=== PATIENT | male | born 1970 | race Caucasian/White ===

== ENCOUNTER 2022-09-27 11:37 | Inpatient (IN) | payer MEDICAID ==
[~2022-09-27] VITALS: Ht 175.3 cm; Wt 90.0 kg
[2022-09-27] MEDS ORDERED: normal saline 1000ml 1,000 ML IV ONE (13:05)
[2022-09-27] MEDS ORDERED: vancomycin/NS 1 GM ADD-VANTAGE 250 ML IV ONE ×2 (13:05→18:30)
[2022-09-27] MEDS ORDERED: piperacillin/tazo 3.375gm/50ml 50 ML IV ONE (13:05)
[2022-09-27] MEDS ORDERED: ondansetron/PF 4mg/2ml inj IV ONE (14:00)
[2022-09-27] MEDS ORDERED: morphine 4 MG/ML inj SYRINge IV ONE (14:00)
[2022-09-27] MEDS ORDERED: LORazepam 2 mg/ml vial IV ONE (14:00)
[2022-09-27 14:21] LABS: BASOPHILS % (AUTO) 0.4 % (0-1); EOSINOPHILS # (AUTO) 0.2 X10'3 (0-0.9); EOSINOPHILS % (AUTO) 2.2 % (0-6); HEMATOCRIT 40.3 % (42.0-52.0); HEMOGLOBIN 13.3 g/dl (14.0-17.9); LYMPHOCYTES # (AUTO) 1.8 X10'3 (1.1-4.8); LYMPHOCYTES % (AUTO) 21.3 % (21-51); MEAN CORPUSCULAR HEMOGLOBIN 29.2 PG (27.0-31.0); MEAN CORPUSCULAR VOLUME 88.5 FL (78-98); MEAN PLATELET VOLUME 8.3 FL (7.4-10.4); MONOCYTES # (AUTO) 0.6 X10'3 (0-0.9); MONOCYTES % (AUTO) 7.1 % (2-12); NEUTROPHILS # (AUTO) 5.7 X10'3 (1.8-7.7); PLATELET COUNT 276 X10'3 (140-440); RED BLOOD COUNT 4.56 X10'6 (4.70-6.10); RED CELL DISTRIBUTION WIDTH 14.6 % (11.5-14.5); WHITE BLOOD COUNT 8.3 X10'3 (4.5-11.0)
[2022-09-27 14:39] LABS: ALANINE AMINOTRANSFERASE 72 U/L (12-78); ALBUMIN 3.7 G/DL (3.4-5.0); ALBUMIN/GLOBULIN RATIO 0.9 (1.1-1.5); ALKALINE PHOSPHATASE 77 IU/L (46-116); ANION GAP 6 (8-16); ASPARTATE AMINO TRANSFERASE 58 U/L (10-37); BILIRUBIN,TOTAL 0.5 MG/DL (0.1-1.0); BLOOD UREA NITROGEN 15 MG/DL (7-18); BUN/CREATININE RATIO 17.2 (10.0-20.0); CALCIUM 9.1 MG/DL (8.5-10.1); CHLORIDE 106 MMOL/L (99-107); CREATININE 0.87 MG/DL (0.60-1.10); GLUCOSE 93 MG/DL (70-104); MAGNESIUM 2.3 MG/DL (1.5-2.4); POTASSIUM 4.7 MMOL/L (3.5-5.1); SODIUM 141 MMOL/L (135-145); TOTAL CARBON DIOXIDE 28.8 MMOL/L (24-32); TOTAL PROTEIN 7.6 G/DL (6.4-8.2); eGFR > 90 ML/MIN
[2022-09-27] MEDS ORDERED: iohexol 300mg/ml 100ml inj. ONE (15:42)
[2022-09-27] MEDS ORDERED: magnesium 2GM in 50ml NS 50 ML IV PRN (17:45)
[2022-09-27] MEDS ORDERED: mag hydrox/Alum hydrox/simeth 30ml oral suspension PO PRN (17:45)
[2022-09-27] MEDS ORDERED: magnesium Cl slow-release 64mg tablet PO PRN (17:45)
[2022-09-27] MEDS ORDERED: potassium Cl 20 mEq SR tablet PO PRN ×2 (17:45)
[2022-09-27] MEDS ORDERED: potassium Cl 40MEQ/1/2NS 520ml 520 ML IV PRN (17:45)
[2022-09-27] MEDS ORDERED: magnesium 4gm in 100ml NS 100 ML IV PRN (17:45)
[2022-09-27] MEDS ORDERED: acetaminophen 325mg tablet PO PRN (17:45)
[2022-09-27] MEDS ORDERED: ondansetron/PF 4mg/2ml inj IV PRN (17:45)
[2022-09-27] MEDS ORDERED: magnesium hydroxide 30ml (MOM) UD suspension PO PRN (17:45)
[2022-09-27 18:25] LABS: HEMOGLOBIN A1C 5.9 % (4.5-6.2)
[2022-09-27 18:27] LABS: ETHANOL < 0.010 GM/DL (0.0-0.010)
[2022-09-27] MEDS: normal saline 1000ml 1,000 ML IV SCH (18:35)
[2022-09-27] MEDS: K and/or MAG REPLACEMENT MC SCH (19:18)
--- NOTE | 2022-09-27 19:31 | NUR ---
ATTEMPTED GENERAL ASSESSMENT. PT UNCOOPERATIVE WITH A MAJORITY OF ASSESSMENT.
[2022-09-27 19:41] LABS: CLARITY,URINE CLOUDY (Clear); COLOR,URINE YELLOW (Yellow); GLUCOSE, URINE NEGATIVE (Neg); KETONES,URINE 15 mg/dl (Neg); LEUKOCYTE ESTERASE ,URINE TRACE (Neg); NITRITES, URINE POSITIVE (Neg); OCCULT BLOOD,URINE TRACE-INTACT (Neg); PH,URINE 6.5 (4.8-8.0); PROTEIN,URINE NEGATIVE (Neg)
[2022-09-27 19:45] LABS: UA COLLECTION TYPE URINAL
[2022-09-27 19:52] LABS: BACTERIA,URINE 4+ /HPF (Neg); SQUAMOUS EPITHELIAL CELL,UR FEW /LPF (FEW); WBC,URINE TNTC /HPF (0-4)
[2022-09-27 19:53] LABS: RBC,URINE 0-2 /HPF (0-2)
[2022-09-27 20:10] LABS: URINE AMPHETAMINE SCREEN POSITIVE (Neg); URINE BARBITUATE SCREEN NEGATIVE (Neg); URINE BENZODIAZEPINES SCREEN NEGATIVE (Neg); URINE CANNABINOID SCREEN POSITIVE (Neg); URINE COCAINE SCREEN NEGATIVE (Neg); URINE METHADONE SCREEN NEGATIVE (Neg); URINE OPIATE SCREEN POSITIVE (Neg); URINE PHENCYCLIDINE SCREEN NEGATIVE (Neg)
--- NOTE | 2022-09-27 21:34 | NUR ---
Patient in room ED 12. I have received report from ZION Haro and had the opportunity to ask questions and assume patient care.
[2022-09-27] MEDS: piperacillin/tazo 3.375gm/50ml 50 ML IV SCH (21:49)
[2022-09-27] MEDS: HYDROmorphone inj. 0.5 MG/0.5 ML DISP.SYRIN IV PRN (21:49)
[2022-09-27 21:56] VITALS: BP_SYST 147; BP_SYST 158; BP_DIAS 104; BP_DIAS 89; PULSE 75; PULSE 96; RESP 16; RESP 19; TEMP 98; O2SAT 98; O2SAT 99
[2022-09-27 22:00] VITALS: RESP 18; O2SAT 98
[2022-09-28] MEDS: HYDROmorphone inj. 0.5 MG/0.5 ML DISP.SYRIN IV PRN ×3 (01:18→09:11)
[2022-09-28] MEDS: piperacillin/tazo 3.375gm/50ml 50 ML IV SCH (04:33)
[2022-09-28] MEDS: normal saline 1000ml 1,000 ML IV SCH ×2 (04:33→10:42)
[2022-09-28 06:00] VITALS: BP 129/98; PULSE 77; RESP 17; TEMP 97.8; O2SAT 98
--- NOTE | 2022-09-28 06:14 | NUR ---
Problems reprioritized. Patient report given, questions answered & plan of care reviewed with GHANSHYAM Higgins.
--- NOTE | 2022-09-28 06:39 | NUR ---
Patient in room ORTHO 4010. I have received report from Silvia MORRISSEY and had the opportunity to ask questions and assume patient care.
--- NOTE | 2022-09-28 06:45 | NUR ---
PAGER ID: [phone] MESSAGE: Gis[facility] [id number] [id number] Please... call re: diet change from CC to Reg A!C 5.9 patient very upset Thank You
[2022-09-28 06:48] LABS: HEMATOCRIT 37.8 % (42.0-52.0); HEMOGLOBIN 12.5 g/dl (14.0-17.9); MEAN CORPUSCULAR HEMOGLOBIN 29.2 PG (27.0-31.0); MEAN CORPUSCULAR VOLUME 88.4 FL (78-98); MEAN PLATELET VOLUME 8.3 FL (7.4-10.4); PLATELET COUNT 245 X10'3 (140-440); RED BLOOD COUNT 4.28 X10'6 (4.70-6.10); RED CELL DISTRIBUTION WIDTH 14.9 % (11.5-14.5); WHITE BLOOD COUNT 7.2 X10'3 (4.5-11.0)
[2022-09-28] MEDS ORDERED: VANCOmycin 1250MG/NS 250ml Bag 250 ML IV SCH (07:00)
[2022-09-28 07:07] LABS: ALANINE AMINOTRANSFERASE 52 U/L (12-78); ALBUMIN 2.7 G/DL (3.4-5.0); ALBUMIN/GLOBULIN RATIO 0.8 (1.1-1.5); ALKALINE PHOSPHATASE 65 IU/L (46-116); ANION GAP 7 (8-16); ASPARTATE AMINO TRANSFERASE 38 U/L (10-37); BILIRUBIN,TOTAL 0.3 MG/DL (0.1-1.0); BLOOD UREA NITROGEN 15 MG/DL (7-18); BUN/CREATININE RATIO 18.1 (10.0-20.0); CALCIUM 8.1 MG/DL (8.5-10.1); CHLORIDE 107 MMOL/L (99-107); CHOL/HDL RATIO 2.5 (0.00-4.99); CHOLESTEROL 125 MG/DL (0-200); CREATININE 0.83 MG/DL (0.60-1.10); GLUCOSE 93 MG/DL (70-104); HDL CHOLESTEROL 50 MG/DL (35-60); LDL CHOLESTEROL 67 MG/DL (50-100); PHOSPHORUS 4.1 MG/DL (2.3-4.5); POTASSIUM 4.2 MMOL/L (3.5-5.1); SODIUM 140 MMOL/L (135-145); TOTAL CARBON DIOXIDE 26.1 MMOL/L (24-32); TOTAL PROTEIN 6.1 G/DL (6.4-8.2); TRIGLYCERIDES 29 MG/DL (20-135); eGFR > 90 ML/MIN
[2022-09-28] MEDS: enoxaparin 40mg/0.4ml syringe SQ SCH (07:35)
[2022-09-28 07:40] VITALS: RESP 16
[2022-09-28] MEDS: K and/or MAG REPLACEMENT MC SCH ×2 (08:00→20:00)
--- NOTE | 2022-09-28 08:25 | NUR ---
Noted pt on a CHO controlled diet with no documented PMH DM, A1c 5.9% which does not meet diagnostic criteria for DM per ADA guidelines, and BG 93 mg/dL since admit. TC to RN with recommendation for diet liberalization to regular. Addendum: 09/28/22 at [address] Amended: Links added.
[2022-09-28] MEDS: VANCOmycin 1250MG/NS 250ml Bag 250 ML IV SCH ×2 (09:11→21:14)
[2022-09-28] MEDS: HYDROcodone/acetaminophen 10/325mg tab PO PRN ×3 (10:43→21:20)
[2022-09-28] MEDS ORDERED: clindamycin 600mg/D5W 50ml 50 ML IV SCH (11:00)
--- NOTE | 2022-09-28 11:37 | NUR ---
Received order for consult. Met with patient in regards to substance use and to see if patient was interested in resources for treatment options. Patient is interested in outpatient resources. Patient has a dog and can't go to an inpatient rehab he said. I gave patient a list of outpatient resources, a card for [facility] and my card to call me with any questions.
--- NOTE | 2022-09-28 12:28 | NUR ---
Per Dr Bryon THOMAS Clindamycin and Zosyn
--- NOTE | 2022-09-28 12:31 | NUR ---
Per RN pt with 100% PO intake at breakfast and with a second meal tray. D/w RN that we can send double protein with meals though RN requests double entree with meals for satiety, d/w dietary. Pt now appropriately on a regular diet. Will continue to follow. Addendum: 09/28/22 at [address] Amended: Links added.
--- NOTE | 2022-09-28 13:28 | NUR ---
darkroom technician at bedside, pt said he is "they said I could go when I wake up...too tired to go and I cannot lie still that long". darkroom technician said he will try tomorrow am. Pt agreed to try tomorrow. Will page hospitalist for ativan order to do MRI, report to Gisela MORRISSEY
--- NOTE | 2022-09-28 13:37 | NUR ---
PRESSURE ULCER EDUCATION: DEFINITION: A pressure ulcer is an area of skin that breaks down when you stay in one position too long. The constant pressure against the skin reduces the blood flow to that area and the affected tissue dies. CAUSES: "Being bedridden or in a wheelchair "Fragile skin "Having a chronic condition, such as diabetes or vascular disease "Inability to move certain parts of your body without assistance "Older age "Incontinence of urine or stool SYMPTOMS: "A reddened area that DOES NOT turn white when pressed on - this can be the beginning of a pressure ulcer "A blister, deep sore or a crater - these can be advanced pressure ulcers FIRST AID: "Relieve the pressure on this area "Keep the area clean and dry "Call your primary doctor if you see any of the above symptoms "DO NOT massage the area "DO NOT use a donut shaped or ring shaped pillow- these actually interfere with the blood flow and cause complications PREVENTION: "Check for pressure ulcers everyday "Change position at least every two hours to relieve pressure "Use items that help relieve pressure- pillows, sheepskin, foam padding, and powders. "Keep skin clean and dry "Eat healthy well balanced meals "Exercise daily IF YOU SEE ANY OF THESE SYMPTOMS WHILE IN THE HOSPITAL - TELL YOUR NURSE IMMEDIATELY. IF YOU SEE ANY OF THESE SYMPTOMS WHILE AT HOME OR HAVE ANY QUESTIONS OR CONCERNS ABOUT PRESSURE ULCERS - CALL YOUR PRIMARY DOCTOR IMMEDIATELY. Addendum: 09/28/22 at 1337 by Cyndi Estrada LVN Amended: Links added.
[2022-09-28] MEDS ORDERED: GABA800T11 PO (15:05)
[2022-09-28] MEDS ORDERED: CLINDAMYCIN 600mg IN NS 50ML 50 ML IV SCH ×2 (16:00→19:00)
--- NOTE | 2022-09-28 16:26 | NUR ---
Patient refused to have lab drawn
[2022-09-28 16:51] LABS: C-REACTIVE PROTEIN 1.48 MG/DL (0.0-0.5)
--- NOTE | 2022-09-28 16:52 | NUR ---
Spoke to Dr Chiang made her aware patient had excuses why he could not do MRI today per previous nursing notes. Patient now states " I am claustrophobic , they have given me Ativan in the past and they gave me three and it didn't work. I Cant lay still. " Also, advised Dr Chiang that patient is asking for pain medication and I told him that Dr Apple only wanted me to give him [place] 10/[address] Chiang will talk to Dr Apple and then get back to me. MRI scheduled for tomorrow.
[2022-09-28] MEDS ORDERED: LORazepam 2 mg/ml vial IV ONE (17:55)
--- NOTE | 2022-09-28 17:57 | NUR ---
Dr Chiang will address patient home medication Gabapentin
[2022-09-28 18:00] VITALS: BP 154/87; PULSE 75; RESP 17; TEMP 97.1; O2SAT 99
--- NOTE | 2022-09-28 18:28 | NUR ---
Problems reprioritized. Patient report given, questions answered & plan of care reviewed with Cyndi MORRISSEY .
--- NOTE | 2022-09-28 18:51 | NUR ---
Patient in room ORTHO 4010. I have received report from NICK MORRISSEY and had the opportunity to ask questions and assume patient care.
[2022-09-28 19:24] LABS: HIV ANTIBODY 1&2 RAPID NON-REACTIVE (Neg)
[2022-09-28 20:00] VITALS: RESP 17; O2SAT 99
[2022-09-28] MEDS ORDERED: non-formulary drug (Gabapentin 2 TAB) PO SCH (20:00)
[2022-09-28] MEDS: valacyclovir 500mg tablet PO SCH (21:14)
[2022-09-28 22:00] VITALS: BP 149/94; PULSE 78; RESP 16; TEMP 97.8; O2SAT 97
[2022-09-29] VITALS (7 sets, daily range): BP systolic 146–159; BP diastolic 82–105; PULSE 65–80; RESP 16–18; TEMP 97.2–98.5; O2SAT 98–99
[2022-09-29] MEDS: normal saline 1000ml 1,000 ML IV SCH ×3 (01:07→19:45)
--- NOTE | 2022-09-29 03:34 | NUR ---
PATIENT SHOWERED EARLY IN SHIFT AND HAS BEEN RESTING COMFORTABLY THROUGH THE NIGHT WITHOUT COMPLAINTS OF PAIN OR DISCOMFORT SINCE LAST MEDICATED WITH NORCO AT 0. TRANSFER OF CARE TO BONNIE MORRISSEY WITH VERBAL REPORT.
--- NOTE | 2022-09-29 03:55 | NUR ---
Patient in room ORTHO 4010. I have received report from Cyndi MORRISSEY and had the opportunity to ask questions and assume patient care.
--- NOTE | 2022-09-29 06:00 | NUR ---
Problems reprioritized. Patient report given, questions answered & plan of care reviewed with Swati MORRISSEY.
[2022-09-29 06:32] LABS: HEMATOCRIT 38.8 % (42.0-52.0); HEMOGLOBIN 12.8 g/dl (14.0-17.9); MEAN CORPUSCULAR HEMOGLOBIN 29.2 PG (27.0-31.0); MEAN CORPUSCULAR HGB CONC 33.1 g/dL (33.0-36.5); MEAN CORPUSCULAR VOLUME 88.1 FL (78-98); MEAN PLATELET VOLUME 8.9 FL (7.4-10.4); PLATELET COUNT 268 X10'3 (140-440); RED CELL DISTRIBUTION WIDTH 14.5 % (11.5-14.5); WHITE BLOOD COUNT 8.5 X10'3 (4.5-11.0)
--- NOTE | 2022-09-29 06:33 | NUR ---
Patient in room ORTHO 4010. I have received report from Lyric and had the opportunity to ask questions and assume patient care.
[2022-09-29 06:43] LABS: ALANINE AMINOTRANSFERASE 53 U/L (12-78); ALBUMIN 2.9 G/DL (3.4-5.0); ALBUMIN/GLOBULIN RATIO 0.8 (1.1-1.5); ALKALINE PHOSPHATASE 77 IU/L (46-116); ANION GAP 6 (8-16); ASPARTATE AMINO TRANSFERASE 32 U/L (10-37); BILIRUBIN,TOTAL 0.3 MG/DL (0.1-1.0); BLOOD UREA NITROGEN 21 MG/DL (7-18); BUN/CREATININE RATIO 24.1 (10.0-20.0); CALCIUM 8.4 MG/DL (8.5-10.1); CHLORIDE 105 MMOL/L (99-107); CREATININE 0.87 MG/DL (0.60-1.10); GLUCOSE 100 MG/DL (70-104); PHOSPHORUS 3.8 MG/DL (2.3-4.5); POTASSIUM 4.1 MMOL/L (3.5-5.1); SODIUM 140 MMOL/L (135-145); TOTAL CARBON DIOXIDE 28.9 MMOL/L (24-32); TOTAL PROTEIN 6.7 G/DL (6.4-8.2); eGFR > 90 ML/MIN
[2022-09-29] MEDS: K and/or MAG REPLACEMENT MC SCH ×2 (07:51→19:34)
[2022-09-29] MEDS: gabapentin 300mg capsule PO SCH ×2 (07:54→19:35)
[2022-09-29] MEDS: valacyclovir 500mg tablet PO SCH (07:55)
[2022-09-29] MEDS: enoxaparin 40mg/0.4ml syringe SQ SCH (07:55)
[2022-09-29] MEDS: HYDROcodone/acetaminophen 10/325mg tab PO PRN ×3 (07:58→22:27)
[2022-09-29] MEDS: VANCOmycin 1250MG/NS 250ml Bag 250 ML IV SCH ×2 (10:19→22:33)
--- NOTE | 2022-09-29 11:47 | NUR ---
called MRI twice to inquire about LE MRI, no answer
[2022-09-29] MEDS: HYDROmorphone/PF 0.2 MG/ML SYRINGE IV PRN (13:28)
--- NOTE | 2022-09-29 15:12 | NUR ---
Patient declined to go forward with the MRI. Patient states he cannot be still for minutes.
--- NOTE | 2022-09-29 18:45 | NUR ---
Problems reprioritized. Patient report given, questions answered & plan of care reviewed with
[2022-09-29] MEDS ORDERED: VANCOMYCIN LEVEL IV ONE (20:30)
[2022-09-29] MEDS ORDERED: lisinopril 10 MG tablet PO ONE (21:45)
--- NOTE | 2022-09-29 22:57 | NUR ---
Agree with Belinda DONOVAN physical assessment except where I documented my findings.
[2022-09-30] MEDS: normal saline 1000ml 1,000 ML IV SCH ×2 (04:39→13:58)
[2022-09-30] MEDS: HYDROcodone/acetaminophen 10/325mg tab PO PRN ×3 (05:39→20:50)
[2022-09-30 06:00] VITALS: BP 148/92; PULSE 70; RESP 18; TEMP 98.3; O2SAT 97
--- NOTE | 2022-09-30 06:26 | NUR ---
Problems reprioritized. Patient report given, questions answered & plan of care reviewed with DARSHAN MORRISSEY.
[2022-09-30 07:45] VITALS: RESP 14
[2022-09-30] MEDS: enoxaparin 40mg/0.4ml syringe SQ SCH (08:00)
[2022-09-30] MEDS: K and/or MAG REPLACEMENT MC SCH ×2 (08:00→20:00)
[2022-09-30] MEDS: VANCOmycin 1250MG/NS 250ml Bag 250 ML IV SCH (08:03)
[2022-09-30] MEDS: gabapentin 300mg capsule PO SCH ×2 (08:03→20:37)
--- NOTE | 2022-09-30 08:17 | NUR ---
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
[2022-09-30] MEDS: HYDROmorphone/PF 0.2 MG/ML SYRINGE IV PRN ×3 (08:43→22:14)
--- NOTE | 2022-09-30 08:58 | NUR ---
Message: Ronnie Chakraborty5B Has BC that are positive. [address] 5199 Custom Responses: promotional table spacer Transaction number: [id number]
[2022-09-30 10:35] VITALS: BP 147/90; PULSE 60; RESP 11; TEMP 97.1; O2SAT 96
--- NOTE | 2022-09-30 15:06 | NUR ---
Called Kevan at [phone] concerning patients belongings. Kevan gave the number to [facility] [phone]. It will be open on Saturday. Will provide the patient with the number to follow up with.
--- NOTE | 2022-09-30 17:34 | NUR ---
throughout the day i have answered this patient's call eaton, this patient has been asking for a burger and that he is only able to eat a burger I sent a fax about the patient's request and told the patient that i have no control over whether he will get a burger again, about an hour later the patient asked for a burger and I told him i can request it but i do not have any control over whether he receives a burger about 5 min ago, i answered the patients call light, patient's half-eaten tray is in front of him and he is telling me that he is having diarrhea and is puking and that he needs a burger, again i advised him that i have no control over whether dietary delivers a burger, also this is the first time that I am hearing about him puking and having diarrhea, i consulted with primary RN, primary RN the puking and diarrhea and primary RN told me that the patient has not had puking or diarrhea, continue to educate and to monitor patient
--- NOTE | 2022-09-30 17:41 | NUR ---
Patient upset that I didn't push his dilaudid to where he can "feel" it. Explained to patient that I will always give his medications in a safe manner. He states that he will be calling me in 5 minutes if he doesn't feel it. Patient called house sup because he doesn't' like his food and the diet he is currently on... he wants a hamburger, ice-cream, soda. Staff has ordered this for him but kitchen was not able to accommodate. Patient states that he is "shitting himself and throwing up", this has not been reported to staff or witnessed. Patient has refused his labs today and does not wish to have an MRI completed.
[2022-09-30 18:00] VITALS: BP 135/102; PULSE 69; RESP 16; TEMP 97.6; O2SAT 99
--- NOTE | 2022-09-30 18:22 | NUR ---
Report given to Belinda
[2022-09-30] MEDS: VANCOMYCIN 1,500MG in normal saline IV soln 300 ML IV SCH (20:53)
[2022-09-30 22:00] VITALS: BP 148/85; PULSE 70; RESP 20; TEMP 98.7; O2SAT 95
[2022-10-01] MEDS: normal saline 1000ml 1,000 ML IV SCH ×2 (01:45→04:11)
--- NOTE | 2022-10-01 03:49 | NUR ---
AGENCY APPOINTMENTS SUPERVISOR documentation: I have reviewed and agree with assessment performed and documented by INDIGO Solares
[2022-10-01] MEDS: HYDROcodone/acetaminophen 10/325mg tab PO PRN ×3 (04:10→15:12)
--- NOTE | 2022-10-01 06:00 | NUR ---
Patient in room ORTHO 4015. I have received report from ZION Trevino and had the opportunity to ask questions and assume patient care.
--- NOTE | 2022-10-01 06:01 | NUR ---
Problems reprioritized. Patient report given, questions answered & plan of care reviewed with Italo DONOVAN.
[2022-10-01] MEDS: HYDROmorphone/PF 0.2 MG/ML SYRINGE IV PRN (07:12)
[2022-10-01] MEDS: gabapentin 300mg capsule PO SCH (07:39)
[2022-10-01 08:00] VITALS: RESP 16; O2SAT 98
[2022-10-01] MEDS: K and/or MAG REPLACEMENT MC SCH (08:00)
[2022-10-01] MEDS: enoxaparin 40mg/0.4ml syringe SQ SCH (08:00)
[2022-10-01] MEDS: VANCOMYCIN 1,500MG in normal saline IV soln 300 ML IV SCH (09:04)
[2022-10-01 10:00] VITALS: BP 153/96; PULSE 63; RESP 16; TEMP 98.2; O2SAT 98
--- NOTE | 2022-10-01 16:00 | NUR ---
I have reviewed and agree with interventions, assessments, and documentation by Italo Chow LVN.
[2022-10-01 16:12] VITALS: RESP 18
--- NOTE | 2022-10-01 16:53 | NUR ---
Pt stable for transfer to [facility]. IV left in patients RUE per [facility] request. Pt left with all belongings. Pt was transferred via [facility] on [address]. Patient d/c facility at 1640. Addendum: 10/01/22 at 1659 by Italo Payne - RADIAL ROUTER OPERATOR RADIAL ROUTER OPERATOR Pt stable for transfer to [facility]. IV left in patients RUE per [facility] request. Pt left with all belongings. Pt had taped wound on heel himself and refused to have discharge photos taken of heel. Pt was transferred via [facility] on [address]. Patient d/c facility at 1640.
[2022-10-02] MEDS ORDERED: VANCOMYCIN LEVEL IV ONE (08:30)
== END 2022-10-01 16:40 | DRG 344 ==
LOC: ER 11:37 → ED HOLD 17:59 → ORTHO 4S 21:48
PROVIDERS: ADMIT Family Medicine; ATTEND Family Medicine
DX: M86.672 Other chronic osteomyelitis, left ankle and foot (principal); L89.629 Pressure ulcer of left heel, unspecified stage; L97.529 Non-pressure chronic ulcer of other part of left foot with unspecified severity; B00.2 Herpesviral gingivostomatitis and pharyngotonsillitis; Z20.822 Contact with and (suspected) exposure to COVID-19; G40.909 Epilepsy, unspecified, not intractable, without status epilepticus; Z59.02 Unsheltered homelessness; Z87.891 Personal history of nicotine dependence; Z56.0 Unemployment, unspecified
CPT/HCPCS: 36415; 70250; 71045; 73620; 73701; 80053; 80061; 80202; 80305; 80320; 81001; 83036; 83605; 83735; 84100; 84145; 85025; 85027; 85651; 86140; 86703; 87040; 87077; 87081; 87088; 87186; 87811; 99285; A4649; A6250; A6446; A6449; G0378; J1170; J2060; J2270; J2405; J2543; J3370; J3490; J7030; J7040; Q9967